=== PATIENT | female | born 1950 | race Caucasian/White ===

== ENCOUNTER 2019-09-10 09:10 | Outpatient (CLI) | payer MEDICARE, OTHER, SELFPAY ==
--- NOTE | ~2019-09-10 | XR_ITS ---
XR wrist LT min 3V 09/10/2019 09:33 Indication: Left wrist pain. Procedure: 3 views left wrist Comparison: 04/04/2012 Findings: There is progression of advanced degenerative changes of the triscaphe and first CMC joints . No acute fracture or traumatic malalignment. No focal soft tissue abnormality. No foreign bodies. Impression: 1: Severe polyarticular osteoarthritis. Reviewed, dictated and finalized at location B. LESOFT PROGRAMMER Impression: 1: Severe polyarticular osteoarthritis.
== END 2019-09-10 09:11 | disposition home or self-care (01) ==
PROVIDERS: PCP Internal Medicine; Visit Provider Orthopaedic Surgery
DX: M25.532 Pain in left wrist (principal)
CPT/HCPCS: 73110

== ENCOUNTER 2019-11-01 13:06 | Outpatient (CLI) | payer MEDICARE, OTHER, SELFPAY ==
--- NOTE | ~2019-11-01 | CT_ITS ---
EXAMINATION: CT chest wo con EXAM DATE: 11/01/2019 13:42 INDICATION: Lung nodule follow-up. TECHNIQUE: Spiral CT of the chest without contrast. Axial, coronal and sagittal images were reviewe d. Coronal maximum intensity pixel images of chest reviewed. The dose-length product (DLP) for this examination was 52.65 mGy-cm. The exposure was tailored according to patient size (auto mA exposure control), and iterative reconstruction (ASIR) was used as additional dose reduction technique. Edgar rison is made to prior examination from 08/29/2018. FINDINGS: There is mild emphysema and hyperinflation. No suspicious pulmonary nodules. There are no pleural or pericardial effusions. Tracheobronchial tree is patent. There is no mediastinal, enio r or axillary lymphadenopathy. There is no pneumothorax. Heart normal in size. There is mild co ronary arterial calcification, arterial sclerosis. Small cholelithiasis. There is thoracic spondylo sis without osteoblastic or osteolytic lesions identified. IMPRESSION: 1. Mild emphysema and hyperinflation. 2. Clear lungs. Reviewed, dictated and finalized at location A.
== END 2019-11-01 13:07 | disposition home or self-care (01) ==
LOC: CHSIMG 13:07
PROVIDERS: PCP Internal Medicine; Visit Provider Internal Medicine Pulmonary Disease
DX: R91.1 Solitary pulmonary nodule (principal)
CPT/HCPCS: 71250

== ENCOUNTER 2019-11-06 08:41 | Outpatient (CLI) | payer MEDICARE, SELFPAY ==
[2019-11-10 09:29] LABS: Vitamin D 25 Hydroxy 74 ng/mL (30-100)
== END 2019-11-06 08:42 | disposition home or self-care (01) ==
PROVIDERS: PCP Internal Medicine; Visit Provider Student in an Organized Health Care Education/Training Program
DX: E55.9 Vitamin D deficiency, unspecified (principal)
CPT/HCPCS: 36415; 82306

== ENCOUNTER 2020-04-08 07:44 | Outpatient (CLI) | payer MEDICARE, SELFPAY ==
[2020-04-08 07:57] LABS: Basophils Absolute Auto 0.02 K/mm3 (0.00-0.10); Basophils Percent Auto 0.5 % (0.0-1.0); Eosinophils Absolute Auto 0.18 K/mm3 (0.02-0.50); Eosinophils Percent Auto 4.3 % (1.0-6.0); Hematocrit 39.9 % (35.0-42.0); Hemoglobin 13.2 g/dL (11.7-13.8); Immature Granulocyte Absolute 0.01 K/mm3 (0.00-0.00); Immature Granulocyte Percent A 0.2 % (0.0-0.0); Lymphocytes Absolute Auto 1.68 K/mm3 (1.10-4.50); Lymphocytes Percent Auto 39.9 % (18.0-42.0); Mean Corpuscular HGB Conc 33.1 g/dL (32.0-36.0); Mean Corpuscular Hemoglobin 31.8 pg (27.0-31.0); Mean Corpuscular Volume 96.1 fL (78.0-102.0); Mean Platelet Volume 10.3 fl (9.2-11.8); Monocytes Absolute Auto 0.46 K/mm3 (0.10-0.90); Monocytes Percent Auto 10.9 % (2.0-11.0); Neutrophils Absolute Auto 1.9 K/mm3 (1.7-7.2); Neutrophils Percent Auto 44.2 % (50.0-70.0); Platelet Count Result 271 K/mm3 (150-420); Red Blood Count 4.15 M/mm3 (4.20-5.40); Red Cell Distribution Width 12.2 % (11.6-14.4); White Blood Count 4.2 K/mm3 (4.8-10.8)
[2020-04-08 09:10] LABS: Alanine Aminotransferase 29 U/L (14-59); Alkaline Phosphatase 59 U/L (46-116); Anion Gap 7 mmol/L (8-16); Aspartate Amino Transferase 22 U/L (15-37); Bilirubin,Total 0.4 mg/dL (0.00-1.00); Blood Urea Nitrogen 8 mg/dL (7-18); Calcium 9.1 mg/dL (8.5-10.1); Carbon Dioxide 30 mmol/L (21-32); Chloride 105 mmol/L (98-108); Cholesterol 197 mg/dL (0-200); Estimated Glomerular Filt Rate > 60; Glucose 87 mg/dL (70-99); HDL Direct 82 mg/dL (40-60); LDL Cholesterol Calculated 103 mg/dL (<130); Osmolality Calculated 291 mOsm/kg (285-295); Potassium 4.4 mmol/L (3.5-5.1); Sodium 142 mmol/L (136-145); Thyroid Stimulating Hormone 1.37 uIU/mL (0.36-3.74); Triglycerides 62 mg/dL (0-150)
== END 2020-04-08 07:45 | disposition home or self-care (01) ==
LOC: CHSLAB 07:47
PROVIDERS: PCP Internal Medicine; Visit Provider Internal Medicine
DX: R53.83 Other fatigue (principal); Z00.00 Encounter for general adult medical examination without abnormal findings; E78.5 Hyperlipidemia, unspecified
CPT/HCPCS: 36415; 80053; 80061; 84443; 85025

== ENCOUNTER 2020-06-09 07:43 | Outpatient (CLI) | payer MEDICARE, SELFPAY ==
--- NOTE | ~2020-06-09 | MM_ITS ---
EXAMINATION: MM screening saba BI w fely HISTORY: Screening mammogram TECHNIQUE: Craniocaudal and mediolateral oblique 3-D tomosynthesis images were obtained and synthetic 2-D images were generated. CAD analysis was submitted and interpreted. COMPARISON: 06/04/2019, 05/29/2018, 05/12/2017 bilateral digital screening mammogram examinations BREAST PARENCHYMAL COMPOSITION: There are scattered areas of fibroglandular density. FINDINGS: Stable 8 mm circumscribed mass benign calcification, upper outer right breast. This is unch anged since 05/12/2017. Scattered bilateral benign calcifications. There is no evidence of suspicious mass, calcification, or architectural distortion to suggest malignancy in either breast. There has be en no suspicious interval change. IMPRESSION: 1. No mammographic evidence of malignancy. 2. Recommend routine screening mammography in one year. BI-RADS Category 2: Benign finding(s). Reviewed, dictated and finalized at location A. OR WINDER
== END 2020-06-09 07:44 | disposition home or self-care (01) ==
LOC: CHSIMG 07:49
PROVIDERS: PCP Internal Medicine; Visit Provider Student in an Organized Health Care Education/Training Program
DX: Z12.31 Encounter for screening mammogram for malignant neoplasm of breast (principal)
CPT/HCPCS: 77063; 77067

== ENCOUNTER 2020-06-10 08:06 | Outpatient (CLI) | payer MEDICARE, SELFPAY ==
--- NOTE | ~2020-06-10 | US_ITS ---
EXAMINATION: US pelvic complete w TV DATE: 06/10/2020 08:34 INDICATION: Left ovarian cyst Comparison:05/30/2018 TECHNIQUE: Multiple transabdominal and endovaginal sonographic images of the pelvis performed. FINDINGS: The uterus measures 5.9 x 2.2 x 4.1 cm. There are several hyperechoic lesions of the uterus , largest measuring 7 mm. These may represent calcifications and/or fibroid changes. There are cervic al calcifications as well, unchanged. The endometrial complex measures 3. The right ovary measures 2.3 x 1.9 x 1.8 cm and the left ovary measures 3 x 1.9 x 1.6 cm. There are small follicles in each ovary. There is no free fluid in the pelvis. There are no abnormal masses seen on either side. IMPRESSION: 1. Several hyperechoic lesions of the uterus and cervix which may relate to calcifications and/or fib roid changes. Otherwise, unremarkable pelvic ultrasound. Reviewed, dictated and finalized at location B. T ROCK LAYER IMPRESSION: 1. Several hyperechoic lesions of the uterus and cervix which may relate to rafaela cifications and/or fibroid changes. Otherwise, unremarkable pelvic ultrasound.
== END 2020-06-10 08:07 | disposition home or self-care (01) ==
PROVIDERS: PCP Internal Medicine; Visit Provider Student in an Organized Health Care Education/Training Program
DX: Z87.42 Personal history of other diseases of the female genital tract (principal)
CPT/HCPCS: 76830; 76856

== ENCOUNTER 2021-03-11 08:59 | Outpatient (CLI) | payer MEDICARE, SELFPAY ==
--- NOTE | ~2021-03-11 | MR_ITS ---
EXAMINATION: MR shoulder RT wo con DATE: 03/11/2021 09:56 INDICATION: Chronic right shoulder pain TECHNIQUE: Magnetic resonance imaging (MRI) of the right shoulder was performed without intravenous c ontrast. Sequences included axial PD-weighted FS FSE, coronal oblique PD-weighted FS FSE, coronal obl ique T2-weighted FS FSE, sagittal PD-weighted FS FSE, and sagittal T1-weighted SE. COMPARISON: Right shoulder radiographs dated 05/22/2019 FINDINGS: Coracoacromial arch: The acromion undersurface is curved in morphology (type II). The coracoacromial ligament is normal. M inimal acromioclavicular osteoarthritis. Rotator cuff: Moderate tendinopathy of the supraspinatus and conjoined supraspinatus and infraspinatus tendons with mild tendinopathy of the more posterior infraspinatus tendon. There is a small mild partial-thicknes s intrasubstance tear extending for approximately 7 mm along the superior facet footplate of the supr aspinatus tendon and involving less than one third of the tendon thickness. The teres minor tendon is normal. Minimal subscapularis tendinopathy without discrete tear. Normal rotator cuff muscle bulk an d signal. Biceps tendon, glenoid labrum and glenohumeral cartilage: Mild tendinopathy with without discrete tear of the intra-articular long head biceps tendon. Glenoid labrum is normal. Partial-thickness cartilage loss which involves greater than 50% the cartilage thic kness but without degenerative subchondral changes along the cephalad aspect of the humeral head. Add itional partial thickness cartilage loss with some chondral surface irregularity at the central, ante rior and cephalad aspect of the glenoid. Partial-thickness chondral fissuring and small marginal oste ophytes along the inferior rim of the humeral head. Fluid: Small glenohumeral joint effusion and/or synovitis at the axillary recess. No loose osteochondral bod ies. Mild increased fluid signal in the subacromial/subdeltoid bursa consistent with minimal bursitis . Bones: Bone alignment is normal. No fracture or pathologic marrow replacing process. Mild cystic change at t he greater tuberosity. IMPRESSION: 1. Moderate supraspinatus tendinopathy with small mild intrasubstance tear along the superior facet f ootplate. 2. Mild infraspinatus and minimal subscapularis tendinopathy without discrete tears. 3. Mild glenohumeral osteoarthritis with extensive moderate grade chondromalacia and with likely reac tive small glenohumeral joint effusion and/or synovitis. 4. Mild tendinopathy without discrete tear of the intra-articular long head biceps tendon. 5. Minimal subacromial/subdeltoid bursitis. Reviewed, dictated and finalized at location A. IMPRESSION: 1. Moderate supraspinatus tendinopathy with small mild intrasubstance tear alfredo g the superior facet footplate. 2. Mild infraspinatus and minimal subscapularis tendinopathy without discrete t ears. 3. Mild glenohumeral osteoarthritis with extensive moderate grade chondromalaci a and with likely reactive small glenohumeral joint effusion and/or synovitis. 4. Mild tendinopathy without discrete tear of the intra-articular long head bic eps tendon. 5. Minimal subacromial/subdeltoid bursitis.
== END 2021-03-11 09:00 | disposition home or self-care (01) ==
LOC: CHSIMG 09:00
PROVIDERS: PCP Internal Medicine; Visit Provider Internal Medicine
DX: M25.511 Pain in right shoulder (principal)
CPT/HCPCS: 73221

== ENCOUNTER 2021-04-08 07:45 | Outpatient (CLI) | payer MEDICARE, SELFPAY ==
[2021-04-08 08:01] LABS: Basophils Absolute Auto 0.02 K/mm3 (0.00-0.10); Basophils Percent Auto 0.5 % (0.0-1.0); Eosinophils Absolute Auto 0.16 K/mm3 (0.02-0.50); Eosinophils Percent Auto 3.8 % (1.0-6.0); Hematocrit 38.4 % (35.0-42.0); Hemoglobin 12.7 g/dL (11.7-13.8); Immature Granulocyte Absolute 0.01 K/mm3 (0.00-0.00); Immature Granulocyte Percent A 0.2 % (0.0-0.0); Lymphocytes Absolute Auto 1.73 K/mm3 (1.10-4.50); Lymphocytes Percent Auto 41.5 % (18.0-42.0); Mean Corpuscular HGB Conc 33.1 g/dL (32.0-36.0); Mean Corpuscular Hemoglobin 32.1 pg (27.0-31.0); Monocytes Absolute Auto 0.42 K/mm3 (0.10-0.90); Monocytes Percent Auto 10.1 % (2.0-11.0); Neutrophils Absolute Auto 1.8 K/mm3 (1.7-7.2); Neutrophils Percent Auto 43.9 % (50.0-70.0); Platelet Count Result 247 K/mm3 (150-420); Red Blood Count 3.96 M/mm3 (4.20-5.40); Red Cell Distribution Width 12.5 % (11.6-14.4); White Blood Count 4.2 K/mm3 (4.8-10.8)
[2021-04-08 08:05] LABS: Add Urine Microscopic? YES; Appearance Urine Clear (Clear); Bilirubin Urine Negative (Negative); Blood Urine Negative (Negative); Color Urine Light Yellow (Yellow); Glucose Urine UA Negative (Negative); Ketones Urine Negative (Negative); Leukocyte Esterase Ur 1+ (Negative); Nitrate Urine Negative (Negative); Protein Urine Negative (Negative); Specific Grav Ur 1.015 (1.010-1.020); Urobilinogen Urine 0.2 mg/dL (0.2-1.0); pH Urine 7.5 (5.0-8.0)
[2021-04-08 08:14] LABS: Bacteria Urine Trace /hpf; RBC Urine None seen /hpf (0-2); Squamous Epithelial Cell Urine Few /hpf (Few); WBC Urine 0-3 /hpf (0-3)
[2021-04-08 09:04] LABS: Alanine Aminotransferase 32 U/L (14-59); Albumin Level 3.8 g/dL (3.4-5.0); Alkaline Phosphatase 57 U/L (46-116); Anion Gap 6 mmol/L (8-16); Aspartate Amino Transferase 16 U/L (15-37); Bilirubin,Total 0.4 mg/dL (0.00-1.00); Blood Urea Nitrogen 12 mg/dL (7-18); Calcium 9.1 mg/dL (8.5-10.1); Carbon Dioxide 32 mmol/L (21-32); Chloride 106 mmol/L (98-108); Cholesterol 203 mg/dL (0-200); Estimated Glomerular Filt Rate > 60; Glucose 84 mg/dL (70-99); HDL Direct 78 mg/dL (40-60); LDL Cholesterol Calculated 114 mg/dL (<130); Osmolality Calculated 296 mOsm/kg (285-295); Potassium 4.1 mmol/L (3.5-5.1); Sodium 144 mmol/L (136-145); Thyroid Stimulating Hormone 0.74 uIU/mL (0.36-3.74); Total Protein 6.5 g/dL (6.4-8.2); Triglycerides 53 mg/dL (0-150)
== END 2021-04-08 07:46 | disposition home or self-care (01) ==
LOC: CHSLAB 07:49
PROVIDERS: PCP Internal Medicine; Visit Provider Internal Medicine
DX: M25.519 Pain in unspecified shoulder (principal); Z00.00 Encounter for general adult medical examination without abnormal findings; Z13.6 Encounter for screening for cardiovascular disorders; R53.83 Other fatigue
CPT/HCPCS: 36415; 80053; 80061; 81001; 84443; 85025

== ENCOUNTER 2021-06-10 08:59 | Outpatient (CLI) | payer MEDICARE, SELFPAY ==
--- NOTE | ~2021-06-10 | MM_ITS ---
EXAMINATION: MM screening saba BI w fely HISTORY: Screening mammogram TECHNIQUE: Craniocaudal and mediolateral oblique 3-D tomosynthesis images were obtained and synthetic 2-D images were generated. CAD analysis was submitted and interpreted. COMPARISON: 06/09/2020, 06/04/2019, 05/29/2018 bilateral screening mammogram examinations BREAST PARENCHYMAL COMPOSITION: There are scattered areas of fibroglandular density. FINDINGS: Scattered bilateral benign calcifications are again noted. There is no evidence of suspicio us mass, calcification, or architectural distortion to suggest malignancy in either breast. There has been no suspicious interval change. IMPRESSION: 1. No mammographic evidence of malignancy. 2. Recommend routine screening mammography in one year. BI-RADS Category 2: Benign finding(s). Reviewed, dictated and finalized at location A. CH ADMINISTRATOR
== END 2021-06-10 09:00 | disposition home or self-care (01) ==
LOC: CHSIMG 09:02
PROVIDERS: PCP Internal Medicine; Visit Provider Student in an Organized Health Care Education/Training Program
DX: Z12.31 Encounter for screening mammogram for malignant neoplasm of breast (principal)
CPT/HCPCS: 77063; 77067

== ENCOUNTER 2022-02-01 12:27 | Outpatient (CLI) | payer MEDICARE, SELFPAY ==
--- NOTE | ~2022-02-01 | DEXA_ITS ---
Bone Density Report Name: PRANEETH ARIZA Age: 71 Sex: Female Ethnicity: White Date of : 1950 Indication: postmenopausal; screening for osteoporosis; height loss; Referring Provider: Jo Ann Mccurdy Study: Bone densitometry was performed. Exam Date: February 01, 2022 Accession number: [id number] Bone Density: Region BMD T-score Z-score Classification AP Spine(L1-L4) 0.897 -1.4 0.9 Osteopenia Femoral Neck (Left) 0.760 -0.8 1.1 Normal Total Hip (Left) 0.878 -0.5 1.1 Normal Femoral Neck (Right) 0.729 -1.1 0.8 Osteopenia Total Hip (Right) 0.883 -0.5 1.1 Normal Femoral Neck Mean 0.744 -0.9 1.0 Normal Total Hip Mean 0.881 -0.5 1.1 Normal World Health Organization criteria for BMD impression classify patients as: Normal (T-score at or above -1.0), Osteopenia (T-score between -1.0 and -2.5), or Osteoporosis (T-score at or below -2.5). 10-year Fracture Risk(1): Major Osteoporotic Fracture 8.8% Hip Fracture 1.2% Reported Risk Factors: [place] (), Neck BMD=0.729, BMI=21.9 (1) FRAX(R) Version 3.08. Fracture probability calculated for an untreated patient. Fracture probability may be lower if the patient has received treatment. Clinical Information Provided by Patient: Has used the following medications: Boniva (i.e. ibandronate), Fosamax (i.e. alendronate), Vitamin D, Calcium Patient maximum height was 61 Menopause Age: 52 Drinks caffeinated beverages Onset of menses at age 12 Number of children 3 Impression: The patient has low bone mass, based on the Total Spine T-score. Discussion: BONE DENSITY IS LOW AT ONE OR MORE SKELETAL SITES. This patient's lowest T-score is low at one or more skeletal sites. It meets the World Health Organization's (WHO) criteria for ?low bone mass? (T-score between -1.0 and -2.5). The patient's 10-year risk of fracture as calculated by FRAX is less than the threshold where pharmacological therapy is recommended by the National Osteoporosis Foundation (NOF). However, all treatment decisions require clinical judgment and consideration of individual patient factors, including patient preferences, comorbidities, previous drug use, risk factors not captured in the FRAX model (e.g., frailty, falls, vitamin D deficiency, increased bone turnover, interval significant decline in bone density) and possible under or overestimation of fracture risk by FRAX. The patient should follow a healthful lifestyle (good nutrition with adequate calcium and vitamin D, and appropriate weight-bearing exercise). Follow-Up: Consider repeating this study in 2 to 3 years to reassess this patient's status, or sooner if there is some new clinical indication. Reported by: Dr. Omar Persaud on 02/01/2022 12:45:00 PM.
== END 2022-02-01 12:28 | disposition home or self-care (01) ==
LOC: CHSIMG 12:28
PROVIDERS: PCP Internal Medicine; Visit Provider Student in an Organized Health Care Education/Training Program
DX: Z78.0 Asymptomatic menopausal state (principal)
CPT/HCPCS: 77080

== ENCOUNTER 2022-04-12 07:53 | Outpatient (CLI) | payer MEDICARE, SELFPAY ==
[2022-04-12 08:15] LABS: Hematocrit 39.6 % (35.0-42.0); Hemoglobin 12.8 g/dL (11.7-13.8); Mean Corpuscular HGB Conc 32.3 g/dL (32.0-36.0); Mean Corpuscular Volume 95.9 fL (78.0-102.0); Mean Platelet Volume 10.8 fl (9.2-11.8); Platelet Count Result 282 K/mm3 (150-420); Red Blood Count 4.13 M/mm3 (4.20-5.40); Red Cell Distribution Width 12.4 % (11.6-14.4); White Blood Count 3.8 K/mm3 (4.8-10.8)
[2022-04-12 08:26] LABS: Appearance Urine Clear (Clear); Bilirubin Urine Negative (Negative); Glucose Urine UA Negative (Negative); Ketones Urine Negative (Negative); Leukocyte Esterase Ur 2+ (Negative); Nitrate Urine Negative (Negative); Protein Urine Negative (Negative); Urobilinogen Urine 0.2 mg/dL (0.2-1.0)
[2022-04-12 08:31] LABS: Add Urine Microscopic? YES; Blood Urine Trace-Intact (Negative); Color Urine Light Yellow (Yellow); RBC Urine None seen /hpf (0-2); Squamous Epithelial Cell Urine Rare /hpf (Few)
[2022-04-12 08:32] LABS: Bacteria Urine Trace /hpf
[2022-04-12 08:36] LABS: Band Neutrophils Percent 0 % (0-6); Eosinophils Absolute Manual 0.11 K/mm3 (0.02-0.5); Eosinophils Percent Manual 3 % (1-6); Lymphocytes Absolute Manual 1.74 K/mm3 (1.1-4.5); Lymphocytes Percent Manual 46 % (18-44); Monocytes Absolute Manual 0.34 K/mm3 (0.1-0.90); Monocytes Percent Manual 9 % (3-9); Neutrophils Absolute Manual 1.59 K/mm3 (1.7-7.2); Neutrophils Percent Manual 42 % (46-73); Platelet Estimate Adequate (Adequate); Schistocytes None Seen (NORMAL); Total Cells Counted 100
[2022-04-12 08:52] LABS: Alanine Aminotransferase 23 U/L (14-59); Albumin Level 3.9 g/dL (3.4-5.0); Alkaline Phosphatase 64 U/L (46-116); Anion Gap 7 mmol/L (8-16); Aspartate Amino Transferase 22 U/L (15-37); Bilirubin,Total 0.6 mg/dL (0.00-1.00); Blood Urea Nitrogen 12 mg/dL (7-18); Calcium 9.2 mg/dL (8.5-10.1); Carbon Dioxide 32 mmol/L (21-32); Chloride 105 mmol/L (98-108); Cholesterol 201 mg/dL (0-200); Estimated Glomerular Filt Rate > 60; Glucose 89 mg/dL (70-99); HDL Direct 83 mg/dL (40-60); LDL Cholesterol Calculated 104 mg/dL (<130); Osmolality Calculated 296 mOsm/kg (285-295); Potassium 3.9 mmol/L (3.5-5.1); Sodium 144 mmol/L (136-145); Thyroid Stimulating Hormone 0.75 uIU/mL (0.36-3.74); Total Protein 7.2 g/dL (6.4-8.2); Triglycerides 71 mg/dL (0-150)
== END 2022-04-12 07:54 | disposition home or self-care (01) ==
LOC: CHSLAB 07:59
PROVIDERS: PCP Internal Medicine; Visit Provider Internal Medicine
DX: E78.5 Hyperlipidemia, unspecified (principal); R53.83 Other fatigue
CPT/HCPCS: 36415; 80053; 80061; 81001; 84443; 85025

== ENCOUNTER 2022-06-17 07:52 | Outpatient (CLI) | payer MEDICARE, SELFPAY ==
--- NOTE | ~2022-06-17 | MM_ITS ---
EXAMINATION: MM screening saba BI w fely HISTORY: Screening mammogram, family history of breast cancer in her mother. TECHNIQUE: Craniocaudal and mediolateral oblique 3-D tomosynthesis images were obtained and synthetic 2-D images were generated. CAD analysis was submitted and interpreted. COMPARISON: 06/10/2021, 06/09/2020, 06/04/2019 BREAST PARENCHYMAL COMPOSITION: There are scattered areas of fibroglandular density. FINDINGS: Scattered benign-appearing calcifications are present. No suspicious mass, calcification, o r architectural distortion are identified in either breast to suggest malignancy. There has been no s uspicious interval change. IMPRESSION: 1. No mammographic evidence of malignancy. 2. Recommend routine screening mammography in one year. BI-RADS Category 2: Benign finding(s). Reviewed, dictated and finalized at location A. AMATIC SPECIALIST
== END 2022-06-17 07:53 | disposition home or self-care (01) ==
LOC: CHSIMG 07:54
PROVIDERS: PCP Internal Medicine; Visit Provider Internal Medicine
DX: Z12.31 Encounter for screening mammogram for malignant neoplasm of breast (principal)
CPT/HCPCS: 77063; 77067

== ENCOUNTER 2022-07-06 10:43 | Outpatient (CLI) | payer MEDICARE, SELFPAY ==
--- NOTE | ~2022-07-06 | XR_ITS ---
Lumbosacral Spine: AP and lateral views Clinical History: Pain Findings: The normal lordotic curve is maintained. No acute fracture. Minimal grade 1 anterolisthesis of L4 over L5 noted. Degenerative disc narrowing at L5-S1 is present. There are mild facet joint deg enerative changes. The sacroiliac joints are normally outlined. Impression: Minimal grade I anterolisthesis of L4 over L5. Additional mild degenerative changes, as detailed above. Reviewed, dictated and finalized at location M. RAL STORE MANAGER Impression: Minimal grade I anterolisthesis of L4 over L5. Additional mild degenerative changes, as detailed above.
--- NOTE | ~2022-07-06 | XR_ITS ---
AP and lateral views of the right hip Clinical history: Pain Findings: No acute fracture or dislocation is seen. Osseous alignment is anatomic. Bilateral hip and SI joint spaces are preserved. Soft tissues are unremarkable. Impression: No significant abnormality is seen. Reviewed, dictated and finalized at location M. SSEMBLER Impression: No significant abnormality is seen.
== END 2022-07-06 10:44 | disposition home or self-care (01) ==
PROVIDERS: PCP Internal Medicine; Visit Provider Internal Medicine
DX: M25.551 Pain in right hip (principal); M43.16 Spondylolisthesis, lumbar region
CPT/HCPCS: 72100; 73502

== ENCOUNTER 2022-07-13 08:52 | Outpatient (RCR) | payer MEDICARE, SELFPAY ==
--- NOTE | 2022-07-13 10:14 | PTOPEVAL1 ---
Assessment and note entered by JT File, PT Evaluation Information Assessment Status Evaluation Diagnosis bilateral hip and lower back pain Onset 07/06/22 Subjective Information patient reports she is having pain int he R buttock. she reports it is increased in pain with walking, but more so with going up and down steps on the R LE. she reports she was prescribed some mm relaxors and had an xray. she reports she is unsure of the exact readings, but reports something was going on at L4/5. she reports she reports has no NTB down the R LE. she reports no pain in the lower back. she reports she is sleeping alright. she reports it is more difficult getting to sleep than staying asleep. she does report difficulty getting up and moving after sitting for an extended amount of time. Reported Pain Level Pain Score 2: Self Report Assessment PT Clinical Summary mrs. montejo presents to skilled PT services for evaluation and treatment of R buttock pain. her signs and symptoms point to a R sciatica. she is an excellent candidate for skilled rehab as she was compliant with therapy in the past and had positive outcomes from skilled PT. skilled PT will work on her core strenght, LE strength, flexibility, and functional activity performance to return to her prior level quality of life. Plan of Care Interventions Electrical Stimulation,Hot Pack/Cold Pack,Manual Therapy,Neuro Re-education,Patient/Caregiver Educati,Therapeutic Activities,Therapeutic Exercise PT Services Indicated Yes Treatment Frequency and 3x weekly for 9 visits Duration These treatments will address the objective and functional deficits as defined above. The patient will be advanced safely and appropriately in order for the patient to progress towards his/her prior level of function. Additional exercises will be introduced and as well as a comprehensive home exercise program upon discharge, if needed, ?to ensure carryover of functional gains achieved in the clinic. This treatment plan has been reviewed and agreement upon by the patient.
--- NOTE | 2022-07-30 16:46 | PTOPDC ---
Assessment and note entered by JT File, PT Evaluation Information Assessment Status Discharge Diagnosis bilateral hip and lower back pain Onset 07/06/22 Subjective Information patient reports she is compliant with her HEP at home. she reports she is a little better in some areas, but continues to have pain in the lower back/R buttock. she reports she would like to stop therapy for now, and return to the MD for an anti -inflamatory and an MRI. she reports she has a history of cysts on her lumbar spine. she reports pain still radiates to the R buttock, but reports he feels about 50% better. Reported Pain Level Pain Score 6: Self Report Assessment PT Clinical Summary treatment performed by Taylor Singh PTA this date. mrs. montejo presents to skilled PT for her 9th skilled therapy visit. she reports this date she feels roughly 50% improved overall. however, she continues to have R LE radicular pain and would like to DC therapy today. she has made progress towards goals, and met goals for hep education and strength. however, due to her continued symptoms and prior history of cysts int he lumbar spine, she would like to return to MD for some anti-inflamatories and and MRI of the lumbar spine. patient will be dc'd from skilled PT services as of this date. Plan of Care Treatment Frequency and DC to return to MD for follow up and MRI Duration
== END 2022-07-30 19:00 | disposition home or self-care (01) ==
LOC: CHSPT 08:52
PROVIDERS: PCP Internal Medicine; Visit Provider Internal Medicine
DX: M54.50 Low back pain, unspecified (principal); M25.551 Pain in right hip; M25.552 Pain in left hip
CPT/HCPCS: 97014; 97110; 97140; 97161; G0283

== ENCOUNTER 2023-04-05 07:52 | Outpatient (CLI) | payer MEDICARE, SELFPAY ==
[2023-04-05 08:04] LABS: Basophils Absolute Auto 0.02 K/mm3 (0.00-0.10); Basophils Percent Auto 0.5 % (0.0-1.0); Eosinophils Absolute Auto 0.07 K/mm3 (0.02-0.50); Eosinophils Percent Auto 1.6 % (1.0-6.0); Hematocrit 36.7 % (35.0-42.0); Hemoglobin 12.1 g/dL (11.7-13.8); Immature Granulocyte Absolute 0.01 K/mm3 (0.00-0.00); Immature Granulocyte Percent A 0.2 % (0.0-0.0); Mean Corpuscular Hemoglobin 31.8 pg (27.0-31.0); Mean Corpuscular Volume 96.3 fL (78.0-102.0); Monocytes Percent Auto 11.3 % (2.0-11.0); Neutrophils Absolute Auto 2.2 K/mm3 (1.7-7.2); Neutrophils Percent Auto 50.4 % (50.0-70.0); Platelet Count Result 308 K/mm3 (150-420); Red Blood Count 3.81 M/mm3 (4.20-5.40); Red Cell Distribution Width 12.9 % (11.6-14.4); White Blood Count 4.4 K/mm3 (4.8-10.8)
[2023-04-05 08:18] LABS: Appearance Urine Clear (Clear); Bilirubin Urine Negative (Negative); Blood Urine Negative (Negative); Color Urine Light Yellow (Yellow); Glucose Urine UA Negative (Negative); Ketones Urine Negative (Negative); Leukocyte Esterase Ur 1+ (Negative); Nitrate Urine Negative (Negative); Protein Urine Negative (Negative); Specific Grav Ur 1.015 (1.010-1.020); Urobilinogen Urine 0.2 mg/dL (0.2-1.0)
[2023-04-05 08:39] LABS: Add Urine Microscopic? YES; Bacteria Urine Rare /hpf; Squamous Epithelial Cell Urine Occasional /hpf (Few)
[2023-04-05 08:45] LABS: Alanine Aminotransferase 19 U/L (14-59); Albumin Level 3.6 g/dL (3.4-5.0); Alkaline Phosphatase 60 U/L (46-116); Anion Gap 4 mmol/L (8-16); Aspartate Amino Transferase 18 U/L (15-37); Bilirubin,Total 0.5 mg/dL (0.00-1.00); Blood Urea Nitrogen 9 mg/dL (7-18); Calcium 9.6 mg/dL (8.5-10.1); Carbon Dioxide 30 mmol/L (21-32); Chloride 107 mmol/L (98-108); Cholesterol 224 mg/dL (0-200); Estimated Glomerular Filt Rate > 60; Glucose 92 mg/dL (70-99); HDL Direct 84 mg/dL (40-60); LDL Cholesterol Calculated 125 mg/dL (<130); Osmolality Calculated 290 mOsm/kg (285-295); Potassium 4.4 mmol/L (3.5-5.1); Sodium 141 mmol/L (136-145); Thyroid Stimulating Hormone 0.71 uIU/mL (0.36-3.74); Total Protein 6.4 g/dL (6.4-8.2); Triglycerides 77 mg/dL (0-150)
== END 2023-04-05 07:53 | disposition home or self-care (01) ==
PROVIDERS: PCP Internal Medicine; Visit Provider Internal Medicine
DX: E78.5 Hyperlipidemia, unspecified (principal); R53.83 Other fatigue
CPT/HCPCS: 36415; 80053; 80061; 81001; 84443; 85025

== ENCOUNTER 2023-06-20 08:14 | Outpatient (CLI) | payer MEDICARE, SELFPAY ==
--- NOTE | ~2023-06-20 | MM_ITS ---
EXAMINATION: MM screening saba BI w fely HISTORY: Screening TECHNIQUE: Craniocaudal and mediolateral oblique 3-D tomosynthesis images were obtained and synthetic 2-D images were generated. CAD analysis was submitted and interpreted. COMPARISON: Comparison to multiple prior studies sequentially, with oldest reviewed study dated 05/12. BREAST PARENCHYMAL COMPOSITION: The breasts are heterogeneously dense, which may obscure small masses FINDINGS: There is no evidence of suspicious mass, calcification, or architectural distortion to sugg est malignancy in either breast. There has been no suspicious interval change. IMPRESSION: 1. No mammographic evidence of malignancy. 2. Recommend routine screening mammography in one year. BI-RADS Category 2: Benign finding(s). Reviewed, dictated and finalized at location A. SION CHAIR
== END 2023-06-20 08:15 | disposition home or self-care (01) ==
LOC: CHSIMG 08:15
PROVIDERS: PCP Internal Medicine; Visit Provider Internal Medicine
DX: Z12.31 Encounter for screening mammogram for malignant neoplasm of breast (principal)
CPT/HCPCS: 77063; 77067

== ENCOUNTER 2024-04-19 07:53 | Outpatient (CLI) | payer MEDICARE, SELFPAY ==
[2024-04-19 08:08] LABS: Basophils Absolute Auto 0.01 K/mm3 (0.00-0.10); Basophils Percent Auto 0.2 % (0.0-1.0); Eosinophils Absolute Auto 0.09 K/mm3 (0.02-0.50); Eosinophils Percent Auto 1.6 % (1.0-6.0); Hemoglobin 12.9 g/dL (11.7-13.8); Immature Granulocyte Absolute 0.01 K/mm3 (0.00-0.00); Immature Granulocyte Percent A 0.2 % (0.0-0.0); Lymphocytes Absolute Auto 1.88 K/mm3 (1.10-4.50); Lymphocytes Percent Auto 33.6 % (18.0-42.0); Mean Corpuscular HGB Conc 33.1 g/dL (32-36); Mean Corpuscular Volume 93.8 fL (78.0-102.0); Mean Platelet Volume 10.1 fl (9.2-11.8); Monocytes Absolute Auto 0.61 K/mm3 (0.10-0.90); Monocytes Percent Auto 10.9 % (2.0-11.0); Neutrophils Percent Auto 53.5 % (50.0-70.0); Platelet Count Result 291 K/mm3 (150-420); Red Blood Count 4.16 M/mm3 (4.20-5.40); Red Cell Distribution Width 12.4 % (11.6-14.4); White Blood Count 5.6 K/mm3 (4.8-10.8)
[2024-04-19 08:12] LABS: Add Urine Microscopic? YES; Appearance Urine Clear (Clear); Bilirubin Urine Negative (Negative); Blood Urine 1+ (Negative); Color Urine Yellow (Yellow); Glucose Urine UA Negative (Negative); Ketones Urine Trace (Negative); Leukocyte Esterase Ur 2+ (Negative); Nitrate Urine Negative (Negative); Protein Urine Negative (Negative); Specific Grav Ur >= 1.030 (1.010-1.020); Urobilinogen Urine 0.2 mg/dL (0.2-1.0)
[2024-04-19 08:20] LABS: Bacteria Urine Trace /hpf; Mucus Urine Moderate /lpf; Squamous Epithelial Cell Urine Moderate /hpf (Few)
[2024-04-19 09:02] LABS: Alanine Aminotransferase 18 U/L (14-59); Albumin Level 3.6 g/dL (3.4-5.0); Alkaline Phosphatase 69 U/L (46-116); Anion Gap 4 mmol/L (4-12); Aspartate Amino Transferase 16 U/L (15-37); Bilirubin,Total 0.5 mg/dL (0.00-1.00); Blood Urea Nitrogen 13 mg/dL (7-18); Calcium 9.3 mg/dL (8.5-10.1); Carbon Dioxide 33 mmol/L (21-32); Chloride 105 mmol/L (98-108); Cholesterol 217 mg/dL (0-200); Estimated Glomerular Filt Rate > 60; Glucose 92 mg/dL (70-99); HDL Direct 73 mg/dL (40-60); LDL Cholesterol Calculated 123 mg/dL (<130); Osmolality Calculated 294 mOsm/kg (285-295); Potassium 3.8 mmol/L (3.5-5.1); Sodium 142 mmol/L (136-145); Thyroid Stimulating Hormone 1.02 uIU/mL (0.36-3.74); Total Protein 6.5 g/dL (6.4-8.2); Triglycerides 105 mg/dL (0-150)
== END 2024-04-19 07:54 | disposition home or self-care (01) ==
LOC: CHSLAB 07:55
PROVIDERS: PCP Internal Medicine; Visit Provider Internal Medicine
DX: E78.5 Hyperlipidemia, unspecified (principal); R53.83 Other fatigue
CPT/HCPCS: 36415; 80053; 80061; 81001; 84443; 85025

== ENCOUNTER 2024-05-02 08:32 | Outpatient (CLI) | payer MEDICARE, SELFPAY ==
[2024-05-02 08:47] LABS: Add Urine Microscopic? NO; Appearance Urine Clear (Clear); Bilirubin Urine Negative (Negative); Blood Urine Negative (Negative); Color Urine Light Yellow (Yellow); Glucose Urine UA Negative (Negative); Ketones Urine Negative (Negative); Leukocyte Esterase Ur Negative (Negative); Nitrate Urine Negative (Negative); Protein Urine Negative (Negative); Specific Grav Ur <= 1.005 (1.010-1.020); Urobilinogen Urine 0.2 mg/dL (0.2-1.0)
== END 2024-05-02 08:33 | disposition home or self-care (01) ==
LOC: CHSLAB 08:33
PROVIDERS: PCP Internal Medicine; Visit Provider Internal Medicine
DX: R31.9 Hematuria, unspecified (principal)
CPT/HCPCS: 81003; 87086; 88112

== ENCOUNTER 2024-06-21 09:41 | Outpatient (CLI) | payer MEDICARE, SELFPAY ==
--- NOTE | ~2024-06-21 | MR_ITS ---
EXAMINATION: MR shoulder RT wo con DATE: 06/21/2024 10:47 INDICATION: Right shoulder pain. TECHNIQUE: Magnetic resonance imaging (MRI) of the right shoulder was performed without intravenous c ontrast. Sequences included axial PD-weighted FS FSE, coronal oblique PD-weighted FS FSE and T2-weigh malinda FS FSE, and sagittal oblique T2-weighted FS FSE and T1-weighted FSE. COMPARISON: April MRI 03/11/2021 FINDINGS: Coracoacromial arch: The acromion undersurface is curved in morphology with anterior hook (type III). There is mild osteoa rthritis of acromioclavicular joint. There is moderate subacromial/subdeltoid bursitis. Rotator cuff: There is severe supraspinatus and infraspinatus tendinopathy. There is shallow articular sided frayin g of the conjoined portion of the tendon distally. There is a small interstitial tear of distal supra spinatus tendon measuring 9 mm anterior to posterior by less than 1/5 tendon thickness. Teres minor t endon is normal. Subscapularis tendon is normal. There is no asymmetric fatty atrophy of the rotator cuff muscle bellies. Biceps tendon and glenoid labrum: Biceps tendon is in bicipital groove. There is mild intra-articular biceps tendinopathy. There is deg enerative tearing of superior labrum. Fluid: There is a small glenohumeral joint effusion. Bones/cartilage: There is deep partial-thickness cartilage loss of glenoid involving the anterior articular surface. T here is deep partial-thickness cartilage loss of humeral head superiorly. Osteophytes are noted. IMPRESSION: 1. Severe rotator cuff tendinopathy with small partial tears. 2. Moderate glenohumeral joint chondrosis. 3. Mild acromioclavicular joint osteoarthritis. 3. Small glenohumeral joint effusion. 4. Moderate subacromial/subdeltoid bursitis. 5. Mild intra-articular biceps tendinopathy. Reviewed, dictated and finalized at location A. ESSOR OF CHEMICAL ENGINEERING
== END 2024-06-21 09:42 | disposition home or self-care (01) ==
LOC: CHSIMG 09:43
PROVIDERS: PCP Internal Medicine; Visit Provider Internal Medicine
DX: M25.511 Pain in right shoulder (principal); M67.813 Other specified disorders of tendon, right shoulder; M19.011 Primary osteoarthritis, right shoulder; M25.411 Effusion, right shoulder; M75.51 Bursitis of right shoulder
CPT/HCPCS: 73221

== ENCOUNTER 2024-06-28 14:41 | Outpatient (CLI) | payer MEDICARE, SELFPAY ==
--- NOTE | ~2024-06-28 | MM_ITS ---
EXAMINATION: MM screening saba BI w fely HISTORY: Screening TECHNIQUE: Craniocaudal and mediolateral oblique 3-D tomosynthesis images were obtained and synthetic 2-D images were generated. CAD analysis was submitted and interpreted. COMPARISON: Comparison to multiple prior studies sequentially, with oldest reviewed study dated 05/11. BREAST PARENCHYMAL COMPOSITION: Dense: The breasts are heterogeneously dense, which may obscure small masses FINDINGS: There is no evidence of suspicious mass, calcification, or architectural distortion to sugg est malignancy in either breast. There has been no suspicious interval change. IMPRESSION: 1. No mammographic evidence of malignancy. 2. Recommend routine screening mammography in one year. BI-RADS Category 1: Negative Reviewed, dictated and finalized at location B. T ABSTRACTOR
== END 2024-06-28 14:42 | disposition home or self-care (01) ==
PROVIDERS: PCP Internal Medicine; Visit Provider Internal Medicine
DX: Z12.31 Encounter for screening mammogram for malignant neoplasm of breast (principal)
CPT/HCPCS: 77063; 77067

== ENCOUNTER 2024-07-30 07:42 | Outpatient (RCR) | payer MEDICARE, SELFPAY ==
--- NOTE | 2024-07-30 07:50 | PTOPEVAL1 ---
Assessment and note entered by Heath Tello Evaluation Information Assessment Status Evaluation ICD-10 Condition Codes (PT) Pain in right shoulder M25.511 Other ICD-10 Condition Codes ( right rotator cuff tear PT) Onset 07/25/24 Subjective Information Pt. reports that she has been dealing with on and off shoulder pain since 2020. She states that pain has been improved recently, likely due to injection in late May. She reports that she has modified her activity and her pain has been reduced. She reports that she was able to shovel snow recently with little pain. She reports that reaching away from her body will increase her pain . She states that she has avoided lifting anything away from her body. She states that her goal is to be able to reach away from her body with light weight without pain. Reported Pain Level Pain Score 0: Self Report Assessment PT Clinical Summary Pt. is a 73 year old female who enters the clinic with right shoulder pain due to a tear in the right rotator cuff. She presents with impaired right u.e. strength, impaired right shoulder ROM and pain on this date. Continued skilled PT is indicated in order to improve these areas to allow the pt. to achieve improved comfort with IADL performance. Plan of Care Interventions Electrical Stimulation,Hot Pack/Cold Pack,Neuro Re -education,Therapeutic Activities,Therapeutic Exercise PT Services Indicated Yes Treatment Frequency and 2x/week x 8 visits Duration These treatments will address the objective and functional deficits as defined above. The patient will be advanced safely and appropriately in order for the patient to progress towards his/her prior level of function. Additional exercises will be introduced and as well as a comprehensive home exercise program upon discharge, if needed, ?to ensure carryover of functional gains achieved in the clinic. This treatment plan has been reviewed and agreement upon by the patient.
--- NOTE | 2024-07-30 07:52 | OPREHPOC ---
Outpatient Therapy Plan of Care This is a Multidisciplinary Plan of Care that may contain components documented by all disciplines (PT, OT, and ST.) PT Problem 1 PT Problem #1 Knowledge Deficit PT Goal 1 Goal / Goal Update Pt. will be independent with a HEP addressing right u.e. mobility and strength. Target Visit 2 PT Problem 2 PT Problem #2 Impaired Range of Motion PT Goal 1 Goal / Goal Update Pt. will demonstrate 75 degrees of active shoulder IR on right to assist with ease of dressing. Pt. will demonstrate 95 degrees of active shoulder ER on right to assist with ease of grooming Target Visit 8 PT Problem 3 PT Problem #3 Impaired Strength PT Goal 1 Goal / Goal Update Pt. will demonstrate 5/5 gross proximal right u.e. strength. Pt. will be able to lift 3-5# object overhead with the right u.e. without pain increase. Target Visit 8
--- NOTE | 2024-08-22 09:00 | OPREHPOC ---
Outpatient Therapy Plan of Care This is a Multidisciplinary Plan of Care that may contain components documented by all disciplines (PT, OT, and ST.) PT Problem 1 PT Problem #1 Knowledge Deficit PT Goal 1 Goal / Goal Update Pt. will be independent with a HEP addressing right u.e. mobility and strength. Target Visit 2 Progress Met PT Problem 2 PT Problem #2 Impaired Range of Motion PT Goal 1 Goal / Goal Update Pt. will demonstrate 75 degrees of active shoulder IR on right to assist with ease of dressing. - met Pt. will demonstrate 95 degrees of active shoulder ER on right to assist with ease of grooming -not met Target Visit 8 Progress Partially Met PT Problem 3 PT Problem #3 Impaired Strength PT Goal 1 Goal / Goal Update Pt. will demonstrate 5/5 gross proximal right u.e. strength. -met Pt. will be able to lift 3-5# object overhead with the right u.e. without pain increase. -met Target Visit 8
--- NOTE | 2024-08-22 09:00 | PTOPDC ---
Assessment and note entered by Reanna Arteaga, PT Evaluation Information Assessment Status Discharge Diagnosis R RCT ICD-10 Condition Codes (PT) Pain in right shoulder M25.511 Other ICD-10 Condition Codes ( right rotator cuff tear PT) Onset 07/25/24 Subjective Information Elza Prado reports her right shoulder is doing much better. She is no longer having pain with all activities and she has been able to return to her previous activity level without difficulty. Reported Pain Level Pain Score 0: Self Report Assessment PT Clinical Summary Elza Prado has completed 8 skilled PT visits for right shoulder pain. She is reporting no pain with all activities and no limitations with daily activities. She demonstrates improved right shoulder AROM, improved right shoulder strength, and improved functional abilities. She will be discharged from skilled PT to an independent in a home exercise program. Plan of Care PT Services Indicated No
== END 2024-08-22 09:06 | disposition home or self-care (01) ==
LOC: CHSPT 07:42
PROVIDERS: Visit Provider Orthopaedic Surgery
DX: M25.511 Pain in right shoulder (principal); M75.101 Unspecified rotator cuff tear or rupture of right shoulder, not specified as traumatic
CPT/HCPCS: 97110; 97140; 97161; 97750

== ENCOUNTER 2024-08-16 13:58 | Outpatient (RCR) | payer MEDICARE, SELFPAY ==
--- NOTE | 2024-08-16 14:50 | OPREHPOC ---
Outpatient Therapy Plan of Care This is a Multidisciplinary Plan of Care that may contain components documented by all disciplines (PT, OT, and ST.) PT Problem 1 PT Problem #1 Knowledge Deficit PT Goal 1 Goal / Goal Update 1. Patient will perform independent HEP Target Visit 3 PT Problem 2 PT Problem #2 Impaired Strength PT Goal 1 Goal / Goal Update 1. Improve pelvic floor strength to 4/5 to reduce incontinence 2. Improve pelvic floor endurance to 10 seconds to reduce incontinence Target Visit 5 PT Problem 3 PT Problem #3 Impaired Functional ADLs PT Goal 1 Goal / Goal Update 1. Patient will report incontinence no more than 1 time per week 2. Patient will only need to use liners for incontinence 3. Patient able to do yard work without limitation from incontinence Target Visit 5
--- NOTE | 2024-08-16 14:52 | PTOPEVAL1 ---
Assessment and note entered by Deborah Thrasher DPT Evaluation Information Assessment Status Evaluation ICD-10 Condition Codes (PT) Weakness R53.1,Stress incontinence N39.3 Subjective Information Pt reports urinary incontinence with any kind of activity including coughing. Has been worsening over the last 1.5 year. Voids 5 times a day and sometimes 0 at night. Can hold urge to void up to 30 minutes depending on the situation. Incontinence occurs multiple times daily, likely 2 -3. Has progressed from liners to pads to depends. Volume varies depending on what she is doing. BM daily, denies fecal incontinence or pain. Pt has been 4 times, 3 vaginal deliveries. Denies history of pelvic pain. Small tear with her first. 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 No b/b issues. Pt will not go for walks as often due to incontinence, avoiding yard work due to incontinence. Previously was able to do all activities without limitation. Returns to MD in 2 years. Patient goal: decrease or minimize the incontinence Reported Pain Level Pain Score 0: Self Report Assessment PT Clinical Summary The patient is presenting to skilled therapy with a history of worsening stress incontinence. She demonstrates decreased pelvic floor strength and endurance, as well as decreased hip and abdominal strength. These impairments are contributing to her incontinence multiple times a day. She will highly benefit from therapy to address strength in order to reduce incontinence and restore function . Plan of Care Interventions Manual Therapy,Mechanical Traction,Patient/ Caregiver Education,Therapeutic Activities, Therapeutic Exercise PT Services Indicated Yes Treatment Frequency and 1 time a week for 5 visits Duration These treatments will address the objective and functional deficits as defined above. The patient will be advanced safely and appropriately in order for the patient to progress towards his/her prior level of function. Additional exercises will be introduced and as well as a comprehensive home exercise program upon discharge, if needed, ?to ensure carryover of functional gains achieved in the clinic. This treatment plan has been reviewed and agreement upon by the patient.
--- NOTE | 2024-09-14 11:54 | PTOPDC ---
Assessment and note entered by Deborah Thrasher DPAkiko Evaluation Information Assessment Status Discharge - Pt Not Present ICD-10 Condition Codes (PT) Weakness R53.1,Stress incontinence N39.3 Subjective Information - Assessment PT Clinical Summary The patient is self discharging at this time due to insurance issues. Plan of Care PT Services Indicated No
== END 2024-09-14 12:56 | disposition home or self-care (01) ==
LOC: ANHPT 13:58
PROVIDERS: PCP Nurse Practitioner Obstetrics & Gynecology; Visit Provider Nurse Practitioner Obstetrics & Gynecology
DX: N39.3 Stress incontinence (female) (male) (principal)
CPT/HCPCS: 97112; 97161

== ENCOUNTER 2024-11-28 12:11 | Outpatient (CLI) | payer MEDICARE, SELFPAY ==
--- NOTE | ~2024-11-28 | XR_ITS ---
Left Hand Technique: PA, oblique, and lateral views were obtained. Clinical History: Pain Findings: No acute fracture or dislocation is seen. Osseous alignment is anatomic. There is severe de generative change at the first CMC joint. Soft tissues are unremarkable. 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 Reviewed, dictated and finalized at [facility]. 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
--- OUTSIDE RECORDS SUMMARY | 2024-11-28 12:18 | XMS_ITS | Clinical Summary ---
Author Organization [facility] Address [address] [place] [address] Phone Care Team Providers Care Commercial Lines Underwriter Name Role Phone Curt Aguirre MD Primary Care Provider [phone] Allergies No known active allergies Medications alendronate (FOSAMAX) 70 mg tabletIndicatio ns:Sundays Take 70 mg by mouth every 7 days empty stomach before other meds,with 8oz of water, stay upright 30 min . Active ergocalciferol (VITAMIN D2) 50,000 unit capsuleIndicati ons:Sundays Take 50,000 Units by mouth every 7 days. Active omega-3 fatty acids-fish oil 300-1,000 mg Capsule Take 1 Capsule by mouth daily. Active phytosterol/vit D3/fish oil (CHOLESTEROL RELIEF ORAL) Take by mouth. Active phytosterol 450 mg Tablet Take by mouth daily. Active HYDROcodone-mitzi taminophen (NORCO) 5-325 mg tablet Take 1 Tablet by mouth every 6 hours as needed for Pain, Moderate. Active ibuprofen (MOTRIN) 200 mg tablet Take 200 mg by mouth every 6 hours as needed for Pain, Mild. Active tiZANidine (ZANAFLEX) 4 mg Tablet Take 1 Tablet by mouth every 8 hours as needed for Spasm. 30 Tablet 1 01/09/2019 6:36 PM CDT 01/09/2019 Active Active Problems Problem Noted Date Diagnosed Date Synovial cyst of lumbar spine 01/09/2019 Social History Tobacco Use Types Packs/Day Years Used Date Smoking Tobacco: Never Smokeless Tobacco: Never Alcohol Use Standard Drinks/Week Comments Yes 0 (1 standard drink = 0.6 oz pur e alcohol) Comments No Sex and Gender Information Value Date Recorded Sex Assigned at Not on file Legal Sex Female 3:50 PM CDT Gender Identity Not on file Sexual Orientation Not on file Last Filed Vital Signs Vital Sign Reading Time Taken Comments Blood Pressure 132/68 01/09/2019 8:14 PM CDT Pulse 97 01/09/2019 8:14 PM CDT Temperature 36.6 C (97.8 F) 01/09/2019 8:14 PM CDT Respiratory Rate 16 01/09/2019 8:14 PM CDT Oxygen Saturation 97% 01/09/2019 8:14 PM CDT Inhaled Oxygen Concentration - - Weight 49.1 kg (108 lb 3.2 oz) 01/09/2019 11:40 AM CDT Height 152.4 cm (5') 01/09/2019 11:40 AM CDT Body Mass Index 21.13 01/09/2019 11:40 AM CDT Plan of Treatment Health Maintenance Due Date Last Done Comments DTAP/TDAP/TD VACCINES (1 - Tdap) 1968 COLORECTAL SCREENING 1994 Colorectal Cancer Screening 1994 FIT-DNA Q 3 years 1994 FIT/FOBT Q 1 year 1994 Flex Sig/CT Colonography Q 5 years 1994 PNEUMOCOCCAL VACCINE 50+ YEARS (1 of 1 - PCV) 09/28/19 ZOSTER VACCINE (1 of 2) 09/28/1999 OSTEOPOROSIS SCREENING 2014 INFLUENZA VACCINE (#1) 2024 RSV VACCINE (60+ or ) (1 - 1-dose 75+ series) 2024 Insurance MEDICARE PART A AND B [facility] Medicare Part D Advance Directives For more information, please contact: [phone] * Full Code (Latest Code Status on File) Date Activated Date Inactivated Comments 01/09/2019 11:56 AM 01/09/2019 10:30 PM Care Teams Commercial Lines Underwriter Relationship Specialty Start Date End Date Curt Aguirre MD [address] [place] [address] PCP - General Internal Medicine 01/04/19
== END 2024-11-28 12:12 | disposition home or self-care (01) ==
LOC: CHSIMG 12:16
PROVIDERS: PCP Internal Medicine; Visit Provider Internal Medicine
DX: M79.642 Pain in left hand (principal)
CPT/HCPCS: 73130

== ENCOUNTER 2025-04-30 07:51 | Outpatient (CLI) | payer MEDICARE, SELFPAY ==
[2025-04-30 08:04] LABS: Hematocrit 39.2 % (35.0-42.0); Hemoglobin 12.7 g/dL (11.7-13.8); Mean Corpuscular HGB Conc 32.4 g/dL (32-36); Mean Corpuscular Hemoglobin 31.3 pg (27.0-31.0); Mean Corpuscular Volume 96.6 fL (78.0-102.0); Platelet Count Result 339 K/mm3 (150-420); Red Blood Count 4.06 M/mm3 (4.20-5.40); White Blood Count 5.0 K/mm3 (4.8-10.8)
[2025-04-30 08:07] LABS: Add Urine Microscopic? YES; Appearance Urine Clear (Clear); Glucose Urine UA Negative (Negative); Leukocyte Esterase Ur 1+ LEU/UL (Negative); Nitrate Urine Negative (Negative); Specific Grav Ur 1.015 (1.010-1.020)
[2025-04-30 09:03] LABS: Alanine Aminotransferase 16 U/L (6-35); Albumin Level 4.2 g/dL (3.5-5.1); Alkaline Phosphatase 71 U/L (38-126); Anion Gap 6 mmol/L (4-12); Aspartate Amino Transferase 28 U/L (14-36); Bilirubin,Total 0.6 mg/dL (0.2-1.3); Blood Urea Nitrogen 14 mg/dL (7-17); Calcium 10.2 mg/dL (8.4-10.2); Carbon Dioxide 31 mmol/L (22-30); Chloride 104 mmol/L (98-107); Cholesterol 224 mg/dL (0-200); Estimated Glomerular Filt Rate > 60; Glucose 88 mg/dL (65-110); HDL Direct 89 mg/dL; Osmolality Calculated 291 mOsm/kg (285-295); Potassium 4.7 mmol/L (3.4-5.0); Sodium 141 mmol/L (137-145); Total Protein 7.3 g/dL (6.3-8.2); Triglycerides 96 mg/dL (<150)
[2025-04-30 09:35] LABS: Thyroid Stimulating Hormone 4.220 uIU/mL (0.465-4.680)
== END 2025-04-30 07:52 | disposition home or self-care (01) ==
LOC: CHSLAB 07:55
PROVIDERS: PCP Internal Medicine; Visit Provider Internal Medicine
DX: R53.83 Other fatigue (principal); E78.5 Hyperlipidemia, unspecified; N39.0 Urinary tract infection, site not specified
CPT/HCPCS: 36415; 80053; 80061; 81001; 84443; 85027; 87086

== ENCOUNTER 2025-05-01 11:50 | Outpatient (CLI) | payer MEDICARE, SELFPAY ==
--- NOTE | ~2025-05-01 | DEXA_ITS ---
Bone Density Report Name: PRANEETH ARIZA Age: 74 Sex: Female Ethnicity: White Date of : 1950 Indication: postmenopausal; screening for osteoporosis; height loss; Referring Provider: VIKTOR SALAZAR Study: Bone densitometry was performed. Exam Date: May 01, 2025 Accession number: [id number] Bone Density: Region BMD T-score Z-score Classification AP Spine(L1-L4) 0.874 -1.6 0.9 Osteopenia Femoral Neck (Left) 0.603 -2.2 -0.1 Osteopenia Total Hip (Left) 0.866 -0.6 1.2 Normal Femoral Neck (Right) 0.703 -1.3 0.8 Osteopenia Total Hip (Right) 0.911 -0.3 1.6 Normal Femoral Neck Mean 0.653 -1.8 0.3 Osteopenia Total Hip Mean 0.889 -0.4 1.4 Normal World Health Organization criteria for BMD impression classify patients as: Normal (T-score at or above -1.0), Osteopenia (T-score between -1.0 and -2.5), or Osteoporosis (T-score at or below -2.5). 10-year Fracture Risk(1): Major Osteoporotic Fracture 13% Hip Fracture 3.7% Reported Risk Factors: [place] (), Neck BMD=0.603, BMI=21.6 (1) FRAX(R) Version 3.08. Fracture probability calculated for an untreated patient. Fracture probability may be lower if the patient has received treatment. Clinical Information Provided by Patient: Has used the following medications: Boniva (i.e. ibandronate), Fosamax (i.e. alendronate), Vitamin D Patient maximum height was 60 Menopause Age: 52 No regular weight bearing exercise Does not regularly consume dairy products Drinks caffeinated beverages Onset of menses at age 12 Number of children 3 Impression: The patient has low bone mass, based on the Left Femoral Neck T-score. Discussion: BONE DENSITY IS LOW AT ONE OR MORE SKELETAL SITES. This patient's lowest T-score is low at one or more skeletal sites. It meets the World Health Organization's (WHO) criteria for ?low bone mass? (T-score between -1.0 and -2.5). The patient's 10-year risk of fracture as calculated by FRAX is less than the threshold where pharmacological therapy is recommended by the National Osteoporosis Foundation (NOF). However, all treatment decisions require clinical judgment and consideration of individual patient factors, including patient preferences, comorbidities, previous drug use, risk factors not captured in the FRAX model (e.g., frailty, falls, vitamin D deficiency, increased bone turnover, interval significant decline in bone density) and possible under or overestimation of fracture risk by FRAX. The patient should follow a healthful lifestyle (good nutrition with adequate calcium and vitamin D, and appropriate weight-bearing exercise). Follow-Up: Consider repeating this study in 2 to 3 years to reassess this patient's status, or sooner if there is some new clinical indication. Reported by: HARLAN on 05/01/2025 12:08:00 PM. Reviewed, dictated and finalized at location A.
== END 2025-05-01 11:51 | disposition home or self-care (01) ==
LOC: CHSIMG 11:51
PROVIDERS: PCP Internal Medicine; Visit Provider Nurse Practitioner Obstetrics & Gynecology
DX: Z78.0 Asymptomatic menopausal state (principal); M85.89 Other specified disorders of bone density and structure, multiple sites
CPT/HCPCS: 77080

== ENCOUNTER 2025-06-17 08:51 | Outpatient (CLI) | payer MEDICARE, SELFPAY ==
[2025-06-17 09:05] VITALS: BP 139/79; PULSE 76; RESP 14; TEMP 36.6; O2SAT 98
[2025-06-17 09:06] VITALS: BMI 23.6
[2025-06-17] MEDS: ZOLEDRONIC ACID 5 MG/100 ML 100 ML 400 MG IVPB (09:10)
--- NOTE | 2025-06-17 09:44 | PC.NURSE ---
Patient tolerated Reclast infusion well. SEE MAR/patient care notes.
[2025-06-17 09:45] VITALS: BP 140/73
== END 2025-06-17 08:52 | disposition home or self-care (01) ==
PROVIDERS: PCP Internal Medicine; Visit Provider Nurse Practitioner Obstetrics & Gynecology
DX: M81.0 Age-related osteoporosis without current pathological fracture (principal)
CPT/HCPCS: 96374; J3489

== ENCOUNTER 2025-07-01 08:23 | Outpatient (CLI) | payer MEDICARE, SELFPAY ==
--- NOTE | ~2025-07-01 | MM_ITS ---
EXAMINATION: MM screening saba BI w fely HISTORY: Screening. TECHNIQUE: Craniocaudal and mediolateral oblique 3-D tomosynthesis images were obtained and synthetic 2-D images were generated. CAD analysis was submitted and interpreted. COMPARISON: Studies dating back to 2018 BREAST PARENCHYMAL COMPOSITION: Dense: The breasts are heterogeneously dense, which may obscure small masses. FINDINGS: No suspicious masses are seen. There are no suspicious calcifications. No unexplained architectural distortion is seen. There are no skin or nipple abnormalities identified. There is no adenopathy seen on the images submitted. IMPRESSION: No mammographic evidence to suggest malignancy is seen. The patient may return to screening mammography as per ACR guidelines. BI-RADS 1 - Negative. Reviewed, dictated and finalized at location A. ITE CUTTER APPRENTICE
--- OUTSIDE RECORDS SUMMARY | 2025-07-01 08:41 | XMS_ITS | Clinical Summary ---
Author Organization [facility] Address [address] [place] [address] Phone Care Team Providers Care Bladder Tier Name Role Phone Curt Aguirre MD Primary Care Provider [phone] Allergies No known active allergies Medications alendronate [...] YEARS (1 of 1 - PCV) 09/28/19 00 ZOSTER VACCINE (1 of 2) 09/28/1999 OSTEOPOROSIS SCREENING 2014 RSV VACCINE (60+ or ) (1 - 1-dose 75+ series) 2024 INFLUENZA VACCINE (#1) 2025 Insurance MEDICARE PART A AND B [facility] Medicare Part D Advance Directives For more information, please contact: [phone] * Full Code (Latest Code Status on File) Date Activated Date Inactivated Comments 01/09/2019 11:56 AM 01/09/2019 10:30 PM Care Teams Bladder Tier Relationship Specialty Start Date End Date Curt Aguirre MD [address] [place] [address] PCP - General Internal Medicine 01/04/19
--- OUTSIDE RECORDS SUMMARY | 2025-07-01 08:41 | XMS_ITS | Patient Health Record ---
Author Organization [facility] Address [address] [place], [place] [id number] Care Team Providers Care Crm Marketing Manager Name Role Phone Curt Aguirre Unavailable Unavailable Reason For Referral No Information Medications Medication SIG (Take, Route, Frequency, Duration) Notes Start Date End Date Status terbinafine 250 MG Oral Tablet ORAL terbinafine 250 MG Oral TabletOriginal Medicationterbinafine 250 MG Oral Tablet *Reorder from [employer] for eRx and Interaction Alerts* 08/16/2014 Active ciclopirox 80 MG/ML Topical Solution ciclopirox 80 MG/ML Topical SolutionOriginal Medicationciclopirox 80 MG/ML Topical Solution *Reorder from [employer] for eRx and Interaction Alerts* 06/11/2016 Active ibandronic acid 150 MG Oral Tablet [Boniva] ORAL ibandronic acid 150 MG Oral Tablet [Boniva]Original Medicationibandronic acid 150 MG Oral Tablet [Boniva] *Reorder from [employer] for eRx and Interaction Alerts* 04/29/2014 Active Social History Social History Additional Details Category Social Info Options Details Migrated Social History Migrated Social History History of tobacco use : , Smoking Status : Never smoked Plan Of Treatment No Information Insurance Providers Payer Name Payer Address Payer Phone Subscriber Number Group Number Insured Name Patient Relationship to Insured Coverage Start Date Coverage End Date Medicare Part B [facility] [address] [place] [address] [id number] PRANEETH ARIZA Self - patient is the insured [place] [employer] [address] [place] [address] [id number] PRANEETH ARIZA Self - patient is the insured
== END 2025-07-01 08:24 | disposition home or self-care (01) ==
LOC: CHSIMG 08:24
PROVIDERS: PCP Internal Medicine; Visit Provider Nurse Practitioner Obstetrics & Gynecology
DX: Z12.31 Encounter for screening mammogram for malignant neoplasm of breast (principal)
CPT/HCPCS: 77063; 77067